=== PATIENT | female | born 1990 | race Caucasian/White ===

== ENCOUNTER 2018-06-02 16:11 | Outpatient (CLI) | payer OTHER, SELFPAY ==
[2018-06-02 16:56] LABS: Abs Immature Grans 0.03 k/cumm (0.0-0.09); Absolute Basophil Count 0.04 k/cumm (0.0-0.2); Absolute Eosinophil Count 0.22 k/cumm (0.0-0.7); Absolute Lymphocyte Count 2.39 k/cumm (1.2-3.4); Absolute Monocyte Count 0.66 k/cumm (0.11-0.7); Absolute Neutrophil Count 7.59 k/cumm (1.2-6.7); Basophils % 0.4; HCT 37.4 % (36.0-46.0); HGB 12.6 g/dL (12.0-15.5); Immature Grans % 0.3; Lymphocytes % 21.9; Mean Corp. HGB Concentration 33.7 g/dL (32.0-36.0); Mean Corpuscular Hemoglobin 29.7 pg (27.0-33.0); Mean Corpuscular Volume 88.2 fL (80-95); Mean Platelet Volume 9.9 fL (8.0-11.0); Neutrophils % 69.4; Platelet Count 269 x1000/uL (130-400); RBC 4.24 m/cumm (4.00-5.20); RBC Distribution Width 13.7 % (11.7-14.6); White Blood Cell Count 10.93 k/cumm (4.4-10.8)
[2018-06-02 18:39] LABS: *AMPHETAMINES SCREEN URINE Negative (Negative); *BARBITURATES SCREEN URINE Negative (Negative); *BENZODIAZEPINES SCREEN URINE Negative (Negative); Cannabinoids THC Negative (Negative); Cocaine Screen,Urine Negative (Negative); METHADONE URINE SCREEN Negative (Negative); OPIATES URINE SCREEN Negative (Negative); Tricyclic Antidepressants Negative (Negative)
[2018-06-02 18:53] LABS: TSH (W/Ref FT4) 1.45 uIU/mL (0.358-3.74)
[2018-06-05 11:29] LABS: Hepatitis C Ab w Rflx HCV PCR Negative (NEGAT)
[2018-06-05 11:31] LABS: HIV-1/2 Ag & Ab Screen Negative (NEGAT)
[2018-06-05 12:07] LABS: Hepatitis B Surface Ag Negative (NEGAT)
[2018-06-05 13:35] LABS: Rubella IgG Ab (UVM) Negative; Varicella IgG Antibody Positive
[2018-06-05 13:54] LABS: Syphilis Serology (RPR) Negative (Negative)
[2018-06-07 08:28] LABS: Buprenorphine Negative; Norbuprenorphine Negative
== END 2018-06-02 16:31 ==
PROVIDERS: PCP Family Medicine; Visit Provider Advanced Practice Midwife
DX: Z34.91 Encounter for supervision of normal pregnancy, unspecified, first trimester (principal); Z11.4 Encounter for screening for human immunodeficiency virus [HIV]; Z11.59 Encounter for screening for other viral diseases; Z01.84 Encounter for antibody response examination; Z11.3 Encounter for screening for infections with a predominantly sexual mode of transmission
CPT/HCPCS: 36415; 80055; 80307; 86787; 86803; 86850; 86900; 86901; 87340; 87389; 84443; 86592; 86762; 87086

== ENCOUNTER 2018-07-11 15:57 | Outpatient (CLI) | payer OTHER, SELFPAY ==
[2018-07-14 16:38] LABS: AFP 37.1 ng/mL; Calculated age at EDD 29 years; Cigarette smoking status non-smoker; GA used in risk estimate Scan estimate; INHIBIN 186 pg/mL; IVF Pregnancy No; Initial or repeat testing Initial testing; Insulin dependent diabetes No; Maternal Weight 177 lbs; Number of Fetuses 1; Prev Down(T21)/Trisomy Pregnan No; Prev Pregnancy w/NTD No; RECOMMENDED FOLLOW UP None.; Results Summary Normal risk; hCG, TOTAL 29.6 IU/mL; hCG, TOTAL MoM 1.09 MoM; uE3 1.05 ng/mL; uE3 MoM 1.16 MoM
== END 2018-07-11 16:17 ==
PROVIDERS: PCP Family Medicine; Visit Provider Advanced Practice Midwife
DX: Z34.92 Encounter for supervision of normal pregnancy, unspecified, second trimester (principal); Z36.89 Encounter for other specified antenatal screening
CPT/HCPCS: 36415; 81511

== ENCOUNTER 2018-07-27 00:20 | Outpatient (CLI) | payer OTHER, SELFPAY ==
--- NOTE | 2018-07-27 15:00 | DI.US_ITS ---
SYMPTOMS/DIAGNOSIS: ROUTINE CARE, Z34.90 OBSTETRICAL ULTRASOUND: Many abnormalities cannot be diagnosed. A normal exam does not exclude a congenital anomaly. Radiology No. [id number] LMP: 03/18/18 Exam Date: 07/27/18 [facility] wks days on EDC ([facility]) 12/23/18 Confirmed: HISTORY: ---- PREDICTED GESTATIONAL AGE NUMBER 18+5 weeks with a range of 17+5 weeks to 19+5 weeks. 1 Determined by___1STUS___LMP___HISTORY PLACENTA PRESENTATION Grade 0-I Cephalic___ Anterior___Posterior_X__ Breech____ Right Left Transverse(head right___ Fundal___Low-lying___Previa___ Transverse(head left___ Varying__X____ BIOMETRY AMNIOTIC FLUID BPD: 44 mm 19+2 weeks Normal HC: 165 mm 19+2 weeks AC: 133 mm 18+5 weeks FL: 29 mm 18+5 weeks AMNIOTIC FLUID INDEX >26 WK CRL: mm weeks Cisterna Magna: 4 mm CI: 79 RUQ: LUQ Cerebellum: 1.9 cm EFW: grams Percentile RLQ: LLQ Total: cms Composite AGE= 19 wks EDC by US: 12/21/18 BIOPHYSICAL PROFILE ANATOMY IDENTIFIED SCORE 0/2 Heart: 4-Chamber_X__Rate:BPM 145 LVOT:____X RVOT:__X Amniotic Fluid(>2cms)____ Stomach:___X____ Kidneys:___X____ Respirations (>30 secs) Bladder:__X Post. Fossa:___X Body Flex/Extension 3-vessel cord:___X____Ventricles:___X Cord insertion:__X___ Lips:____ Extremity Flex/Extension Spinal morphology:___X Nose:__X__ Total Score= Palate:__X NS=not seen COMMENTS: Routine examination was performed. There is a single living intrauterine gestation. Estimated sonographic age is 19 weeks. No or placental abnormalities are identified. The fetus was in varying positions during the examination. heart rate is 145 beats per minute. Amniotic fluid visually is within normal limits. The placenta is posterior. IMPRESSION: Single living intrauterine gestation. Estimated sonographic age is 19 weeks.
== END 2018-07-27 00:40 ==
PROVIDERS: PCP Family Medicine; Visit Provider Advanced Practice Midwife
DX: Z34.92 Encounter for supervision of normal pregnancy, unspecified, second trimester (principal)
CPT/HCPCS: 76805

== ENCOUNTER 2018-10-03 15:09 | Outpatient (CLI) | payer OTHER, SELFPAY ==
[2018-10-03 15:28] LABS: HCT 33.2 % (36.0-46.0); HGB 10.8 g/dL (12.0-15.5); Mean Corp. HGB Concentration 32.5 g/dL (32.0-36.0); Mean Corpuscular Hemoglobin 29.8 pg (27.0-33.0); Mean Corpuscular Volume 91.7 fL (80-95); Mean Platelet Volume 10.2 fL (8.0-11.0); Platelet Count 239 x1000/uL (130-400); RBC 3.62 m/cumm (4.00-5.20); RBC Distribution Width 13.7 % (11.7-14.6); White Blood Cell Count 15.43 k/cumm (4.4-10.8)
[2018-10-03 15:41] LABS: Glucose,1 Hr (Glucola) 121 mg/dL (80-140)
== END 2018-10-03 15:29 ==
PROVIDERS: PCP Family Medicine; Visit Provider Nurse Practitioner
DX: Z34.93 Encounter for supervision of normal pregnancy, unspecified, third trimester (principal)
CPT/HCPCS: 36415; 82950; 85027

== ENCOUNTER 2018-11-28 17:09 | Outpatient (REF) | payer OTHER, SELFPAY | END 2018-11-28 17:29 | LOC: LBN 17:09 | PROVIDERS: PCP Family Medicine; Visit Provider Advanced Practice Midwife | DX: Z34.93 Encounter for supervision of normal pregnancy, unspecified, third trimester (principal); Z36.85 Encounter for antenatal screening for Streptococcus B | CPT/HCPCS: 87081 ==

== ENCOUNTER 2018-12-29 09:54 | Outpatient (CLI) | payer OTHER, SELFPAY | END 2018-12-29 10:14 | PROVIDERS: PCP Family Medicine; Visit Provider Advanced Practice Midwife | DX: O48.0 Post-term pregnancy (principal); Z3A.40 40 weeks gestation of pregnancy | CPT/HCPCS: 59025 ==

== ENCOUNTER 2019-01-01 15:29 | Outpatient (CLI) | payer OTHER, SELFPAY | END 2019-01-01 15:49 | PROVIDERS: PCP Family Medicine; Visit Provider Advanced Practice Midwife | DX: O48.0 Post-term pregnancy (principal); Z3A.41 41 weeks gestation of pregnancy | CPT/HCPCS: 59025 ==

== ENCOUNTER 2019-01-02 09:52 | Inpatient (IN) | payer OTHER, SELFPAY ==
[2019-01-02] MEDS: miSOPROStol 50 MCG TAB PO ×2 (13:08→17:26)
[2019-01-02 13:24] LABS: HCT 34.4 % (36.0-46.0); HGB 11.2 g/dL (12.0-15.5); Mean Corp. HGB Concentration 32.6 g/dL (32.0-36.0); Mean Corpuscular Hemoglobin 28.7 pg (27.0-33.0); Mean Corpuscular Volume 88.2 fL (80-95); Mean Platelet Volume 10.4 fL (8.0-11.0); Platelet Count 221 x1000/uL (130-400); White Blood Cell Count 12.13 k/cumm (4.4-10.8)
[2019-01-02] MEDS: Oxytocin 10 UNITS/ML VIAL IM (21:25)
[2019-01-03 07:24] LABS: HCT 33.7 % (36.0-46.0); Mean Corp. HGB Concentration 32.6 g/dL (32.0-36.0); Mean Corpuscular Hemoglobin 28.6 pg (27.0-33.0); Mean Corpuscular Volume 87.5 fL (80-95); Mean Platelet Volume 10.3 fL (8.0-11.0); Platelet Count 214 x1000/uL (130-400); RBC 3.85 m/cumm (4.00-5.20); White Blood Cell Count 16.39 k/cumm (4.4-10.8)
[2019-01-03] MEDS: Measles, Mumps, & Rubella Vaccine 0.5 ML VIAL SC (12:12)
[2019-01-03] MEDS: Acetaminophen 325 MG TAB 650 MG PO (17:45)
[2019-01-03] MEDS: Ibuprofen 600 MG TAB PO (17:45)
== END 2019-01-04 11:50 | disposition home or self-care (01) | DRG 807 ==
PROVIDERS: Admitting Provider Advanced Practice Midwife; PCP Family Medicine; Visit Provider Advanced Practice Midwife
DX: O48.0 Post-term pregnancy (principal); Z3A.41 41 weeks gestation of pregnancy; Z37.0 Single live birth; O69.81X0 Labor and delivery complicated by cord around neck, without compression, not applicable or unspecified; Z23 Encounter for immunization
CPT/HCPCS: 36415; 85027; 86850; 86900; 86901; 59200; J2590

== ENCOUNTER 2019-02-05 10:13 | Outpatient (REF) | payer OTHER, SELFPAY ==
--- NOTE | 2019-02-05 09:50 | PAPFT_PTH ---
PATIENT: Corinna Song LOC: [facility] U#:[id number] AGE/SX: 28/F ROOM: RE02/05/[address]: Irma Palomo : 1990 BED: DIS: 02/05/2019 SPEC #: [id number] RECD: 02/05/19 13:08 STATUS: KAYLYNN REBob #: [id number] SOLEDAD: 02/05/19 09:[address]: Irma Palomo DEPT: [facility] Cytology RECD BY: Brit Awad ENTERED: 02/05/19 13:08 SP TYPE: PAPFT OTHR DR: Elisa Maxwell Tissues: 1 - CX/ENDOCX FOR PAP SMEARS Procedures: PAP THIN PREP/[facility] Screening Comments: [id number]
== END 2019-02-05 10:33 ==
LOC: LBN 10:13
PROVIDERS: PCP Family Medicine; Visit Provider Advanced Practice Midwife
DX: Z12.4 Encounter for screening for malignant neoplasm of cervix (principal)
CPT/HCPCS: 88142

== ENCOUNTER 2020-07-23 07:46 | Outpatient (REF) | payer OTHER, SELFPAY ==
[2020-07-23 19:42] LABS: HCT 40.1 % (36.0-46.0); HGB 12.8 g/dL (11.2-15.7); MCH 28.9 pg (27.0-33.0); MCHC 31.9 % (32.0-36.0); MCV 90.5 fL (80-95); MPV 11.7 fL (8.0-11.0); Platelet Count 256 10^3/uL (130-400); RBC 4.43 10^6/uL (3.93-5.22); RDW 13.2 % (11.7-14.6); RDW-SD 43.4 fL
[2020-07-23 20:10] LABS: Anion Gap 7.9 mmol/L (3-11); BUN 17 mg/dL (7-18); CO2 26.1 mmol/L (21.0-32.0); CREATININE 0.96 mg/dL (0.55-1.02); Calcium 8.8 mg/dL (8.5-10.1); Chloride 104 mmol/L (98-107); Glucose 86 mg/dL (74-106); Sodium 138 mmol/L (136-145)
== END 2020-07-23 08:06 ==
LOC: NCHCN 07:46
PROVIDERS: PCP Family Medicine; Visit Provider Family Medicine
DX: R53.83 Other fatigue (principal)
CPT/HCPCS: 80048; 85027; 84443

== ENCOUNTER 2025-03-14 02:50 | Outpatient (CLI) | payer BC, SELFPAY ==
[2025-03-14 11:34] LABS: Abs Immature Grans 0.02 10^3/uL (0.0-0.06); HCT 38.4 % (36.0-46.0); HGB 12.5 g/dL (11.2-15.7); Immature Grans % 0.2 %; MCH 29.1 pg (27.0-33.0); MCHC 32.6 % (32.0-36.0); MCV 89 fL (80-95); MPV 9.6 fL (8.0-11.0); Platelet Count 278 10^3/uL (130-400); RBC 4.30 10^6/uL (3.93-5.22); RDW 13.6 % (11.7-14.6); RDW-SD 44.3 fL; WBC 10.06 10^3/uL (4.4-10.8)
[2025-03-14 11:49] LABS: Hemoglobin A1C 5.2 % (<5.7)
[2025-03-14 11:50] LABS: Lab Add On Test DONE
[2025-03-14 12:40] LABS: TSH (W/Ref FT4) 1.14 uIU/mL (0.36-3.74)
[2025-03-14 18:47] LABS: Hepatitis C Ab w Rflx HCV PCR Negative (Negative)
[2025-03-14 20:07] LABS: HIV-1/2 Ag & Ab Screen Negative (Negative)
[2025-03-15 10:27] LABS: Rubella IgG Ab (UVM) Positive (See Note)
[2025-03-17 16:25] LABS: Syphilis IgG w/Reflex Nonreactive (Nonreactive)
== END 2025-03-14 02:51 | disposition home or self-care (01) ==
LOC: LBO 02:50
PROVIDERS: PCP Family Medicine; Visit Provider Advanced Practice Midwife
DX: Z34.92 Encounter for supervision of normal pregnancy, unspecified, second trimester (principal); Z3A.17 17 weeks gestation of pregnancy
CPT/HCPCS: 36415; 86787; 86803; 86850; 86900; 86901; 87340; 87389; 83036; 84443; 85025; 86762; 86780

== ENCOUNTER 2025-03-14 11:09 | Outpatient (REF) | payer BC, SELFPAY ==
--- NOTE | 2025-03-14 10:30 | PAPFT_PTH ---
PATIENT: Corinna Song LOC: [facility] U#:[id number] AGE/SX: 34/F ROOM: RE03/14/[address]: Elham Cole CNM : 1990 BED: DIS: 03/14/2025 SPEC #: [id number] RECD: 03/14/25 13:15 STATUS: KAYLYNN REQ #: [id number] SOLEDAD: 03/14/25 10:[address]: Elham Cole DEPT: [facility] Cytology RECD BY: Brit Awad ENTERED: 03/14/25 13:16 SP TYPE: PAPFT OTHR DR: Elisa Maxwell Tissues: 1 - CX/ENDOCX FOR PAP SMEARS Procedures: PAP THIN PREP/[facility] Screening HPV DNA PROBE Comments: [id number] (HPV 16 & 18/45) (CHLAMYDIA/GC)
[2025-03-15 14:14] LABS: Chlamydia Result Negative (Negative); GC Result Negative (Negative)
== END 2025-03-14 11:10 | disposition home or self-care (01) ==
LOC: LBN 11:09
PROVIDERS: PCP Family Medicine; Visit Provider Advanced Practice Midwife
DX: Z34.91 Encounter for supervision of normal pregnancy, unspecified, first trimester (principal); Z3A.12 12 weeks gestation of pregnancy; R82.89 Other abnormal findings on cytological and histological examination of urine
CPT/HCPCS: 87491; 87591; 88142; 87086; 87624

== ENCOUNTER 2025-03-22 19:27 | Outpatient (REF) | payer BC, SELFPAY ==
[2025-03-22 17:28] LABS: Glucose Negative (Negative)
== END 2025-03-22 19:28 | disposition home or self-care (01) ==
LOC: LBN 19:27
PROVIDERS: PCP Family Medicine; Visit Provider Advanced Practice Midwife
DX: R10.9 Unspecified abdominal pain (principal)
CPT/HCPCS: 81003

== ENCOUNTER 2025-07-05 02:35 | Outpatient (CLI) | payer BC, SELFPAY ==
[2025-07-05 16:24] LABS: HCT 29.8 % (36.0-46.0); HGB 9.7 g/dL (11.2-15.7); MCH 28.6 pg (27.0-33.0); MCHC 32.6 % (32.0-36.0); MCV 88 fL (80-95); MPV 10.1 fL (8.0-11.0); Platelet Count 231 10^3/uL (130-400); RBC 3.39 10^6/uL (3.93-5.22); RDW 12.8 % (11.7-14.6); RDW-SD 41.1 fL; WBC 15.46 10^3/uL (4.4-10.8)
[2025-07-05 16:53] LABS: Glucose,1 Hr (Glucola) 132 mg/dL (80-140)
== END 2025-07-05 02:36 | disposition home or self-care (01) ==
LOC: LBO 02:35
PROVIDERS: PCP Family Medicine; Visit Provider Advanced Practice Midwife
DX: Z34.92 Encounter for supervision of normal pregnancy, unspecified, second trimester (principal)
CPT/HCPCS: 36415; 82950; 85027